=== PATIENT | female | born 1980 | race Caucasian/White ===

== ENCOUNTER → 2021-06-17 13:54 | Outpatient (CLI) | payer BC, SELFPAY ==
--- NOTE | ~2021-06-17 | US_ITS ---
EXAMINATION: US thyroid EXAM DATE: 06/17/2021 14:30 INDICATION: Nontoxic thyroid nodule TECHNIQUE: Multiple grayscale and Doppler images of the thyroid were obtained (by a technologist who performed the scan) and subsequently reviewed. Individual nodules and recommendations may be reporte d in accordance with TI-RADS system as designated by the 2017 ACR White Paper TI-RADS committee. The re is no prior study for comparison. FINDINGS: The right thyroid lobe measures 5.6 x 1.7 x 1.7 cm, the left measuring 5.7 x 2.0 x 1.8 cm. Mildly het erogeneous thyroid echogenicity with scattered thyroid nodules. There is heterogeneous left thyroid lobe nodule or contiguous nodules, region measuring 2.1 x 1.8 x 1 .2 cm, solid (2 points), hypoechoic (2 points), wider than tall, ill-defined margin, without echogeni c foci, category TR4 for this nodule. Size indicates ultrasound-guided biopsy. The next largest nodule is in the right thyroid lobe measuring 1.3 x 0.8 x 1.2, solid (2 points), hyp oechoic (2 points), wider than tall, smooth well defined margin, without echogenic foci, category TR4 for this nodule. Size warrants one-year follow-up exam. IMPRESSION: 1. Multinodular goiter. 2. Consider ultrasound-guided FNA of the largest left thyroid lobe nodule or contiguous nodules, and one year follow-up. Reviewed, dictated and finalized at location A. [facility] IMPRESSION: 1. Multinodular goiter. 2. Consider ultrasound-guided FNA of the largest left thyroid lobe nodule or c ontiguous nodules, and one year follow-up.
== END ==
PROVIDERS: Visit Provider Nurse Practitioner
DX: E04.2 Nontoxic multinodular goiter (principal)
CPT/HCPCS: 76536

== ENCOUNTER 2021-07-23 13:01 | Outpatient (CLI) | payer BC, SELFPAY ==
--- NOTE | ~2021-07-23 | US_ITS ---
EXAMINATION: US FNA w image guidance DATE: 07/23/2021 14:00 INDICATION: Left thyroid nodule. TECHNIQUE: The procedure and its benefits and risks were discussed with the patient. Risks specifically discusse d included bleeding. The patient verbalized understanding of the risks and agreed to proceed. The nec k was prepped and draped in the usual sterile manner. 1% lidocaine was used for local anesthesia. 6 passes were made with a 25G needle into the lesion under ultrasound guidance. There were no immedia te complications. FINDINGS: Grayscale ultrasound images demonstrate needles advanced into a 2.0 cm nodule in left thyroid lobe fo r biopsy. IMPRESSION: 1. Ultrasound-guided fine needle aspiration of a left thyroid nodule. Reviewed, dictated and finalized at location A.
== END 2021-07-23 13:02 | disposition home or self-care (01) ==
LOC: ANHIMG 13:06
PROVIDERS: PCP Family Medicine; Visit Provider Nurse Practitioner
DX: E04.1 Nontoxic single thyroid nodule (principal)
CPT/HCPCS: 10005; 88173; 88305